=== PATIENT | female | born 1970 | race Caucasian/White ===

== ENCOUNTER 2016-07-28 14:43 | Emergency (ER) | payer MEDICAID ==
[~2016-07-28] VITALS: Ht 177.8 cm; Wt 68.1 kg
[2016-07-28 15:15] LABS: BASOPHIL % 0.3 % (0-2); PLATELET COUNT 266 x10^3mcL (130-400); RED CELL DISTRIBUTION WIDTH 13.1 % (11.5-14.5)
[2016-07-28 15:36] LABS: CALCIUM 8.6 mg/dL (8.5-10.1); CARBON DIOXIDE 30.6 mmol/L (21-32); CHLORIDE SERUM 102 mmol/L (98-107); CREATININE SERUM 0.6 mg/dL (0.6-1.0); GFR1 > 60 mL/min; GLUCOSE SERUM 101 mg/dL (74-106); POTASSIUM SERUM 3.8 mmol/L (3.5-5.1); SODIUM SERUM 139 mmol/L (136-145)
[2016-07-28 15:42] LABS: ALBUMIN 3.4 g/dL (3.4-5.0); ALKALINE PHOSPHATASE 58 U/L (46-116); ALT/SGPT 27 U/L (14-59); AST/SGOT 15 U/L (15-37); BILIRUBIN TOTAL 0.32 mg/dL (0.20-1.00); TOTAL PROTEIN, SERUM 6.9 g/dL (6.4-8.2)
[2016-07-28 19:04] VITALS: BP 120/71
== END 2016-07-28 19:04 | disposition home or self-care (01) ==
LOC: ED 14:43
PROVIDERS: Emergency Medicine
DX: R07.9 Chest pain, unspecified (principal); J02.9 Acute pharyngitis, unspecified
CPT/HCPCS: 83880; 85378; J1885; J7030; Q0092; Q9967

== ENCOUNTER 2016-08-11 11:00 | Emergency (ER) | payer MEDICAID ==
[2016-08-11 12:47] VITALS: BP 121/77
== END 2016-08-11 12:47 | disposition home or self-care (01) ==
LOC: ED 11:00
DX: J02.8 Acute pharyngitis due to other specified organisms (principal)

== ENCOUNTER 2017-01-03 18:20 | Emergency (ER) | payer OTHER ==
[~2017-01-03] VITALS: Ht 147.3 cm; Wt 66.7 kg
[2017-01-03 19:28] LABS: CALCIUM 7.9 mg/dL (8.5-10.1); CARBON DIOXIDE 26.1 mmol/L (21-32); CHLORIDE SERUM 104 mmol/L (98-107); CREATININE SERUM 0.7 mg/dL (0.6-1.0); GFR1 > 60 mL/min; GLUCOSE SERUM 91 mg/dL (74-106); POTASSIUM SERUM 3.3 mmol/L (3.5-5.1); SODIUM SERUM 137 mmol/L (136-145)
[2017-01-03 20:13] VITALS: BP 111/46
== END 2017-01-03 20:13 | disposition home or self-care (01) ==
LOC: ED 18:20
PROVIDERS: Emergency Medicine
DX: R10.9 Unspecified abdominal pain (principal); E87.8 Other disorders of electrolyte and fluid balance, not elsewhere classified; E86.0 Dehydration; R19.7 Diarrhea, unspecified; J45.909 Unspecified asthma, uncomplicated; E28.2 Polycystic ovarian syndrome
CPT/HCPCS: J2405; J3010; J7030

== ENCOUNTER 2017-01-07 15:41 | Emergency (ER) | payer OTHER ==
[2017-01-07 16:40] LABS: BASOPHIL % 0.4 % (0-2); PLATELET COUNT 328 x10^3mcL (130-400); RED CELL DISTRIBUTION WIDTH 13.6 % (11.5-14.5)
[2017-01-07 17:02] LABS: CALCIUM 7.8 mg/dL (8.5-10.1); CARBON DIOXIDE 30.2 mmol/L (21-32); CHLORIDE SERUM 103 mmol/L (98-107); CREATININE SERUM 0.7 mg/dL (0.6-1.0); GFR1 > 60 mL/min; GLUCOSE SERUM 89 mg/dL (74-106); POTASSIUM SERUM 3.6 mmol/L (3.5-5.1); SODIUM SERUM 139 mmol/L (136-145)
[2017-01-07 17:08] LABS: ALKALINE PHOSPHATASE 51 U/L (46-116); ALT/SGPT 27 U/L (14-59); AST/SGOT 17 U/L (15-37); BILIRUBIN TOTAL 0.6 mg/dL (0.20-1.00); LIPASE 174 IU/L (73-393); MAGNESIUM 1.9 mg/dL (1.8-2.4); TOTAL PROTEIN, SERUM 6.7 g/dL (6.4-8.2)
[2017-01-07 17:11] LABS: ALBUMIN 3.2 g/dL (3.4-5.0)
[2017-01-07 18:00] VITALS: BP 103/68
== END 2017-01-07 18:00 | disposition home or self-care (01) ==
LOC: ED 15:41
PROVIDERS: Emergency Medicine
DX: R19.7 Diarrhea, unspecified (principal); E86.0 Dehydration; R10.13 Epigastric pain; E28.2 Polycystic ovarian syndrome; J45.909 Unspecified asthma, uncomplicated; E05.00 Thyrotoxicosis with diffuse goiter without thyrotoxic crisis or storm; Z91.040 Latex allergy status; Z91.013 Allergy to seafood
CPT/HCPCS: J1885; J2405; J3490; J7030